=== PATIENT | female | born 1975 | race Caucasian/White ===

== ENCOUNTER → 2016-11-12 | Outpatient (CLI) | payer MEDICAID ==
[~2016-11-12] MED LIST: IOPAMIDOL (ISOVUE-300) 50 ML VIAL IV ONE
--- NOTE | 2016-11-12 18:56 | CT ---
CT of the Neck With Contrast 1824 hours History: Possible left submandibular mass on physical exam (R 22.1) Technique: Spiral imaging was obtained from the base of skull to the lung apices during the administ ration of 90 mL Isovue-300 IV contrast. Images were constructed in multiple planes. Dose reduction te chniques were utilized. Findings: In the region of palpable abnormality along the inferior margin of the left mandible there are 2 adjacent lymph nodes with larger one measuring 14 x 5 mm on series 3 image 86. A marker was lauren mirian on the skin an area palpable concern. These lymph nodes have a benign appearance. Additional smal ler lymph nodes are seen elsewhere right-side of the neck in the some mandibular region. The submandi bular gland appears to be atrophic and or splint in 2 separate components versus additional small lym ph nodes in the region of the segment number gland on the left. Submandibular tissue on the right ag e is not delineated. The parotid gland is normal in appearance bilaterally. Normal-appearing subcentimeter lymph nodes are seen within the soft tissues on each side of the neck. No significant lymphadenopathy is appreciated. There is increased number of lymph nodes in the left supraclavicular region at the level of at to just below the lower pole of the thyroid. The largest no de in this region measures 10 x 10 mm transversely x 22 mm longitudinally since around series 10 imag e 119. The parapharyngeal soft tissues are symmetric without evidence of mass. The vallecula and piri form sinuses also appear to be normal. The soft palate has a normal contour. The musculature within the neck is symmetric. There is normal enhancement of the vasculature. There is no evidence of underl sherrie stenosis involving the carotid system. Mild to moderate disk space narrowing is present at C5- C6. Otherwise, no significant cervical disk disease is seen. There is moderate mucosal thickening inv olving maxillary sinuses with mild mucosal thickening involving ethmoid air cells. The frontal and sp henoid sinuses are clear as well as mastoid air cells. Impression: 1. Atrophic submandibular gland bilaterally with possible fragmentation of the submandibular gland on the left. 2. The palpable nodularity left submandibular region corresponds with benign-appearing lymph nodes wi thout lymphadenopathy. 3. Increased number of otherwise normal appearing lymph nodes left supraclavicular region representin g level 4 nodes. 4. Mild to moderate degenerative disk disease at C5-C6.
== END ==
LOC: FIMAGING 17:39
PROVIDERS: ATTEND Surgery
DX: I89.8 Other specified noninfective disorders of lymphatic vessels and lymph nodes (principal); M50.322 Other cervical disc degeneration at C5-C6 level
CPT/HCPCS: Q9967

== ENCOUNTER 2017-01-18 21:39 | Emergency (ER) | payer MEDICAID ==
[2017-01-18 21:46] VITALS: RESP 20
[2017-01-18] MEDS ORDERED: NS 1,000 ML IV ONE (22:02)
[2017-01-18] MEDS ORDERED: ONDANSETRON 4 MG/2 ML VIAL IVP ONE (22:02)
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
[2017-01-18 22:17] LABS: % IMMATURE GRANULYOCYTES 0.4 % (0.0-1.1); ABSOLUTE IMMATURE GRANULOCYTES 0.05 10^3/uL (0.00-0.10); ADD DIFF? NO; ADD MORPH? NO; ADD SCAN? NO; ATYPICAL LYMPHOCYTE FLAG 20 (0-99); FRAGMENT RBC FLAG 0 (0-99); HEMOGLOBIN 13.2 g/dL (12.6-16.3); LEFT SHIFT FLG 0 (0-99); LIPEMIA HEMOLYSIS FLAG 80 (0-99); MEAN CELL HEMOGLOBIN 30.6 pg (27.9-34.1); MEAN CELL VOLUME 92.8 fL (81.5-99.8); MEAN PLATELET VOLUME 9.8 fL (8.7-11.7); PLATELET CLUMPS FLAG 20 (0-99); PLATELET COUNT 333 10^3/uL (150-400); RED BLOOD CELL COUNT 4.31 10^6/uL (4.18-5.33); RED CELL DISTRIBUTION WIDTH 14.2 % (11.5-15.2)
[2017-01-18 22:30] LABS: ALANINE AMINOTRANSFERASE 31 IU/L (9-52); ALBUMIN 4.4 g/dL (3.5-5.0); ALKALINE PHOSPHATASE 51 IU/L (38-126); ANION GAP 13 mEq/L (8-16); ASPARTATE AMINOTRANSFERASE 24 IU/L (14-46); BILIRUBIN,TOTAL 0.8 mg/dL (0.1-1.4); BILIRUBIN-CONJUGATED 0.3 mg/dL (0.0-0.5); BILIRUBIN-UNCONJUGATED 0.5 mg/dL (0.0-1.1); CALCIUM 9.5 mg/dL (8.5-10.4); CARBON DIOXIDE 21 mEq/l (22-31); CHLORIDE 101 mEq/L (97-110); CREATININE 0.7 mg/dL (0.6-1.0); GLOMERULAR FILTRATION RATE > 60; GLUCOSE 122 mg/dL (70-100); POTASSIUM 3.7 mEq/L (3.5-5.2); SODIUM 135 mEq/L (134-144); TOTAL PROTEIN 7.8 g/dL (6.3-8.2)
[2017-01-19] MEDS ORDERED: ONDANSETRON 4MG PREPACK#2 BTL TAKEHOME ONE (01:03)
[2017-01-19 01:14] VITALS: BP 135/95; PULSE 87; TEMP 98.6; O2SAT 97
== END 2017-01-19 01:14 | disposition home or self-care (01) ==
DX: K52.9 Noninfective gastroenteritis and colitis, unspecified (principal); E86.0 Dehydration
CPT/HCPCS: 96374; J2405

== ENCOUNTER 2018-08-23 17:03 | Emergency (ER) | payer MEDICAID ==
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
[2018-08-23 18:55] VITALS: BP 167/118
== END 2018-08-23 18:56 | disposition home or self-care (01) ==
DX: S06.0X0A Concussion without loss of consciousness, initial encounter (principal); S16.1XXA Strain of muscle, fascia and tendon at neck level, initial encounter; W00.0XXA Fall on same level due to ice and snow, initial encounter; Y92.014 Private driveway to single-family (private) house as the place of occurrence of the external cause